=== PATIENT | male | born 1960 | race Caucasian/White ===

== ENCOUNTER 2016-07-30 05:45 | Day surgery (SDC) | payer BC ==
--- NOTE | ~2016-07-30 | EGD ---
EGD REPORT [facility] [place] [address] [address] NAME: HERMILA LOZANO : 58 STATUS : REG [facility]#: [id number] AGE: 56 ADM/REG DATE : 07/30/16 MR#: [id number] REPORT SERV DATE: 07/30/16 DICTATED BY: DAVIDE BULLARD DATE: 07/30/16 REPORT STATUS : Draft TRANSCRIBED BY: [facility] DATE: 07/30/16 Endoscopy Center Patient Name: Hermila Lozano Date of : 1960 Attending MD: DAVIDE BULLARD MD Procedure Date No Time: 07/30/2016 Procedure: Upper GI endoscopy Indications: Dysphagia, Heartburn, Suspected esophageal reflux Referring MD: DAVIDE LATIF Medicines: as per anesthesia Complications: No immediate complications. Procedure: Pre-Anesthesia Assessment: - ASA Grade Assessment: III - A patient with severe systemic disease. After obtaining informed consent, the endoscope was passed under direct vision. Throughout the procedure, the patient's blood pressure, pulse, and oxygen saturations were monitored continuously. The GIF [id number] was introduced through the mouth, and advanced to the third part of duodenum. The upper GI endoscopy was accomplished without difficulty. The patient tolerated the procedure. Findings: The examined esophagus was normal. The scope was withdrawn. Dilation was performed with a Flowers dilator with no resistance at 44 Fr. A medium-sized hiatus hernia was present. Localized mild inflammation characterized by erythema was found in the gastric antrum. Biopsies were taken with a cold forceps for histology. A few sessile polyps were found in the gastric body. Biopsies were taken with a cold forceps for histology. The examined duodenum was normal. Impression: - Normal esophagus. Dilated. - Hiatus hernia. - Gastritis. Biopsied. - A few gastric polyps. Biopsied. - Normal examined duodenum. Recommendation: - Await pathology results. - Follow an antireflux regimen. - Continue present medications. Procedure Code(s): --- Professional --- 28754, Esophagogastroduodenoscopy, flexible, transoral; EGD REPORT [address] [address] NAME: HERMILA LOZANO : [birth year] STATUS : REG [facility]#: [id number] AGE: 56 ADM/REG DATE : 07/30/16 MR#: [id number] REPORT SERV DATE: 07/30/16 DICTATED BY: DAVIDE BULLARD. DATE: 07/30/16 REPORT STATUS : Draft TRANSCRIBED BY: [employer] DATE: 07/30/16 with biopsy, single or multiple 43387, Dilation of esophagus, by unguided sound or bougie, single or multiple passes Diagnosis Code(s): --- Professional --- K44.9, Diaphragmatic hernia without obstruction or gangrene K29.70, Gastritis, unspecified, without bleeding K31.7, Polyp of stomach and duodenum R13.10, Dysphagia, unspecified R12, Heartburn CPT copyright 2013 [employer]. All rights reserved. The codes documented in this report are preliminary and upon knit goods press hand review may be revised to meet current compliance requirements. DAVIDE BULLARD MD 07/30/2016 8:09 AM This report has been signed electronically. Number of Addenda: 0 Note Initiated On: 07/30/2016 7:19 AM Scope Withdrawal Time 0 hours 0 minutes 0 seconds [id number] [place] [address]
[~2016-07-30 05:45] MED LIST: ASAB PO; AVAP150 PO; AVAPRO300 MG PO; B COMPLETE PO; BACDS PO; BENICAR HCT1 TAB PO; BRINT20T PO; BUSPAR10 PO; C5; CENTRUM TAB1 TAB PO; CIALIS5 MG PO; CO Q-10100 MG PO; COREG12 PO; COREG25 PO; COREG6 PO; COZ25 PO; CYMBALTA60 PO; DEXA5B PO; DEXAMETHASON1 MG PO; DITRO5 PO; FISH-EPA1000 MG PO; FLOMAX4 PO; KLONO1 PO; LEVOTHYROXIN100 MCG PO; LEVOTHYROXIN75 MCG PO; LISINOPRIL40 MG PO; MAXIMUM D3 PO; MELA3 PO; MELATONIN5 M1 PO; MOBIC15 MG PO; MULTIPLE VIT PO; NASONEX NAS; NEXIUM40 PO; NORCO1 TA2 PO; NORV5 PO; OS500+D PO; PCET PO; PERCOCET1 TA2 PO; PREVALITE4 G1 PO; RITALIN10 PO; SEROQUEL400 MG PO; SUPER B COMP PO; TESTOST CYP200 MG/ML IM; TOPXL100 PO; TOPXL25 PO; TRICOR48 PO; VITAMIN D31000 UNIT PO; XIFAXAN550 MG PO
== END 2016-07-30 23:59 | disposition home or self-care (01) ==
LOC: DMU 05:45
PROVIDERS: Internal Medicine Gastroenterology
PROC: 0DB78ZX Excision of Stomach, Pylorus, Via Natural or Artificial Opening Endoscopic, Diagnostic (ICD-10-PCS; 2016-07-30)
PROC: 0D750ZZ Dilation of Esophagus, Open Approach (ICD-10-PCS; principal; 2016-07-30 07:30)
PROC: 0DB68ZX Excision of Stomach, Via Natural or Artificial Opening Endoscopic, Diagnostic (ICD-10-PCS; 2016-07-30 07:30)
DX: K31.7 Polyp of stomach and duodenum (principal); K44.9 Diaphragmatic hernia without obstruction or gangrene; I10 Essential (primary) hypertension; I48.91 Unspecified atrial fibrillation; K21.9 Gastro-esophageal reflux disease without esophagitis; E03.9 Hypothyroidism, unspecified; F32.9 Major depressive disorder, single episode, unspecified; E78.00 Pure hypercholesterolemia, unspecified; Z88.2 Allergy status to sulfonamides; Z88.1 Allergy status to other antibiotic agents; Z88.8 Allergy status to other drugs, medicaments and biological substances; Z90.89 Acquired absence of other organs; Z98.890 Other specified postprocedural states
CPT/HCPCS: 88305

== ENCOUNTER 2016-07-31 17:36 | Emergency (ER) | payer BC ==
[2016-07-31 18:40] LABS: BASOPHILS 0.4 %; BASOPHILS ABSOLUTE 0.03 10/3/uL (0.0-0.16); EOSINOPHILS 1.3 %; EOSINOPHILS ABSOLUTE 0.09 10/3/uL (0.0-0.53); ER CBC TAT 0 Hrs 05 Mins; HEMATOCRIT 46.7 % (40.0-51.0); HEMOGLOBIN 15.2 g/dL (13.6-17.8); IMMATURE GRANULOCYTES 0.6 %; IMMATURE GRANULOCYTES ABSOLUTE 0.04 10/3/uL (0.0-0.11); LYMPHOCYTES 17.1 %; LYMPHOCYTES ABSOLUTE 1.22 10/3/uL (0.67-4.30); MEAN CORPUS HGB CONC 32.5 g/dL (32.0-36.0); MEAN CORPUSCULAR HEMOGLOB 24.5 pg (26.0-34.0); MEAN CORPUSCULAR VOLUME 75.3 fL (80-100); MEAN PLATELET VOLUME 9.7 fL (9.2-13.0); MONOCYTES ABSOLUTE 0.71 10/3/uL (0.21-1.20); NEUTROPHILS 70.6 %; NEUTROPHILS ABSOLUTE 5.03 10/3/uL (2.02-8.40); PLATELET COUNT 255 10/3/uL (150-400); RBC DISTRIBUTION WIDTH 16.2 % (12.0-16.0); WHITE BLOOD CELLS 7.1 10/3/uL (4.5-10.5)
[2016-07-31 18:41] LABS: MANUAL DIFF NO %
[2016-07-31 18:55] LABS: A/G RATIO 1.1 (0.7-1.9); ALBUMIN 3.8 G/DL (3.5-5.0); ALKALINE PHOSPHATASE 129 U/L (45-117); CHLORIDE, SERUM 110 MMOL/L (96-112); CO2 (CARBON DIOXIDE) 28 MMOL/L (24-34); CREATININE 0.93 MG/DL (0.70-1.30); GFR AFRICAN AMERICAN 105 ML/MIN (>=60); GFR NON AFRICAN AMERICAN 91 ML/MIN (>=60); GLOBULIN 3.6 G/DL (2.5-4.1); GLUCOSE, SERUM 110 MG/DL (60-99); POTASSIUM, SERUM 4.6 MMOL/L (3.5-5.3); SGPT(ALT) 30 U/L (5-65); SODIUM, SERUM 142 MMOL/L (135-148); TOTAL BILIRUBIN 0.5 MG/DL (0-1.2); TOTAL PROTEIN 7.4 G/DL (6.0-8.5)
[2016-07-31 18:57] LABS: BUN (BLOOD UREA NITROGEN) 14 MG/DL (6-23)
[2016-07-31 18:59] LABS: SGOT(AST) 21 U/L (5-40)
== END 2016-07-31 20:11 | disposition home or self-care (01) ==
LOC: ER 17:36
PROVIDERS: Physician Assistant
DX: R51 Headache (principal); I10 Essential (primary) hypertension; I48.91 Unspecified atrial fibrillation; E78.5 Hyperlipidemia, unspecified; K21.9 Gastro-esophageal reflux disease without esophagitis; F32.9 Major depressive disorder, single episode, unspecified; Z88.2 Allergy status to sulfonamides; Z88.1 Allergy status to other antibiotic agents; Z88.8 Allergy status to other drugs, medicaments and biological substances; Z79.899 Other long term (current) drug therapy; Z79.82 Long term (current) use of aspirin
CPT/HCPCS: 70450; 71010; 80053; 85025; 93005; 99285